=== PATIENT | female | born 1965 | race Caucasian/White ===

== ENCOUNTER 2017-06-11 17:56 | Emergency (ER) | payer MEDICARE ==
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
--- NOTE | 2017-06-11 19:17 | RADIOLOGY REPORT (SQ) ---
EXAM DESCRIPTION: FOOT RIGHT COMPLETE COMPLETED DATE/TIME: 06/11/2017 7:04 pm REASON FOR STUDY: Fell off ladder landing on right heel then knee COMPARISON: None. NUMBER OF VIEWS: Three views. TECHNIQUE: AP, lateral and oblique radiographic images acquired of the right foot. LIMITATIONS: None. FINDINGS: MINERALIZATION: Normal. BONES: No acute fracture or dislocation. Orthopedic screw noted at the navicular bone. SOFT TISSUES: No soft tissue swelling. No radiopaque foreign body. IMPRESSION: No radiographic evidence of acute injury. TECHNICAL DOCUMENTATION: JOB ID: [id number] 2010 [employer]- All Rights Reserved
--- NOTE | 2017-06-11 19:18 | RADIOLOGY REPORT (SQ) ---
EXAM DESCRIPTION: KNEE RIGHT 4 VIEWS COMPLETED DATE/TIME: 06/11/2017 7:04 pm REASON FOR STUDY: Fell off ladder landing on right heel then knee COMPARISON: None. NUMBER OF VIEWS: Four views. TECHNIQUE: AP, lateral, and both oblique radiographic images acquired of the right knee. LIMITATIONS: None. FINDINGS: MINERALIZATION: Normal. BONES: No acute fracture or dislocation. JOINT: No effusion. SOFT TISSUES: No soft tissue swelling. No radio-opaque foreign body. IMPRESSION: No radiographic evidence of acute injury. TECHNICAL DOCUMENTATION: JOB ID: [id number] OH-[id number] 2010 [employer]- All Rights Reserved
--- NOTE | 2017-06-11 19:20 | RADIOLOGY REPORT (SQ) ---
EXAM DESCRIPTION: OS CALCIS/HEEL RIGHT COMPLETED DATE/TIME: 06/11/2017 7:04 pm REASON FOR STUDY: Fell off ladder landing on right heel then knee COMPARISON: Right foot x-ray 06/11/2017. NUMBER OF VIEWS: Two views. TECHNIQUE: Plantar and lateral images acquired of the right calcaneous. LIMITATIONS: None. FINDINGS: MINERALIZATION: Normal. BONES: No acute fracture or dislocation. Orthopedic screw noted at the navicular bone. SOFT TISSUES: No soft tissue swelling. No radiopaque foreign body. IMPRESSION: No radiographic evidence of acute injury. TECHNICAL DOCUMENTATION: JOB ID: [id number] OH-[id number] 2010 [employer]- All Rights Reserved
--- NOTE | 2017-06-11 19:25 | RADIOLOGY REPORT (SQ) ---
EXAM DESCRIPTION: CT CERVICAL SPINE WITHOUT; CT THORACIC SPINE WITHOUT; CT LUMBAR SPINE WITHOUT COMPLETED DATE/TIME: 06/11/2017 7:06 pm REASON FOR STUDY: Neck pain after landing on heel; back pain after fall COMPARISON: None. TECHNIQUE: Axial images acquired through the cervical, thoracic and lumbar spine without intravenous contrast. Images reviewed with lung, soft tissue and bone windows. Reconstructed coronal and sagit harsh MPR images reviewed. Images stored on PACS. All CT scanners at this facility use dose modulation, iterative reconstruction, and/or weight based d osing when appropriate to reduce radiation dose to as low as reasonably achievable (ALARA). [facility]: Dose Right [facility]: CareDose [facility]: Dose Right [facility]: Teradose 4D [facility]: [employer] RADIATION DOSE: CT Rad equipment meets quality standard of care and radiation dose reduction techniq ues were employed. CTDIvol: 11.6 mGy. DLP: 212 mGy-cm.; CT Rad equipment meets quality standard of ca re and radiation dose reduction techniques were employed. CTDIvol: 100.9 mGy. DLP: 3234 mGy-cm. mGy. LIMITATIONS: None. FINDINGS: Cervical: Normal alignment. Intact anterior instrumentation spanning C5 through C7. No fracture or bone lesio n. Clear lung apices. Thoracic: Normal alignment. No fracture or bone lesion. No displaced rib fracture. No visualized mediastinal hematoma. Clear lungs. Lumbar: No posttraumatic malalignment. Minimal listhesis at operative level L4-5. This fusion with posterio r rods and screws generally intact spanning this level. Mild lucency along the inferior pedicle scre ws could reflect loosening. No fracture or bone lesion. Nonobstructive bilateral nephrolithiasis. No retroperitoneal hematoma or visualized pelvic fracture. IMPRESSION: 1. No evidence of cervical, thoracic or lumbar spine fracture. Other findings as above. TECHNICAL DOCUMENTATION: JOB ID: [id number] Quality ID # [id number]: Final reports with documentation of one or more dose reduction techniques (e.g., Au tomated exposure control, adjustment of the mA and/or kV according to patient size, use of iterative reconstruction technique) 2010 [employer]- All Rights Reserved
[2017-06-11 19:43] VITALS: BP 134/87
== END 2017-06-11 19:45 | disposition home or self-care (01) ==
LOC: ER 17:56
DX: M54.2 Cervicalgia (principal); M79.671 Pain in right foot; G89.29 Other chronic pain; M25.561 Pain in right knee; M54.5 Low back pain; W11.XXXA Fall on and from ladder, initial encounter; F17.210 Nicotine dependence, cigarettes, uncomplicated; Z98.1 Arthrodesis status
CPT/HCPCS: 72125; 72128; 72131; 99284; 99406

== ENCOUNTER 2017-08-30 12:23 | Emergency (ER) | payer MEDICARE, MEDICAID ==
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
--- NOTE | 2017-08-30 14:00 | RADIOLOGY REPORT (SQ) ---
EXAM DESCRIPTION: L SPINE WHOLE COMPLETED DATE/TIME: 08/30/2017 1:39 pm REASON FOR STUDY: low back pain COMPARISON: None. NUMBER OF VIEWS: Five views including obliques. TECHNIQUE: AP, lateral, oblique, and sacral radiographic images acquired of the lumbar spine. LIMITATIONS: None. FINDINGS: MINERALIZATION: Normal. SEGMENTATION: Normal. No transitional anatomy. ALIGNMENT: Normal. VERTEBRAE: Maintained height. No fracture or worrisome bone lesion. DISCS: There is decrease in the L4-L5 disc space height. No other significant disc space reduction i s seen POSTERIOR ELEMENTS: Pedicles and facets are intact. No pars defect or posterior arch defects. HARDWARE: Bilateral orthopedic rods transfixed by pedicular screws are identified at L4-L5 level. PARASPINAL SOFT TISSUES: Normal. PELVIS: Intact as visualized. No fractures or worrisome bone lesions. SI joints intact. OTHER: No other significant finding. IMPRESSION: Postsurgical changes as noted above. There is decrease in the L4-L5 disc space height. Other findings as noted above TECHNICAL DOCUMENTATION: JOB ID: [id number] [employer]- All Rights Reserved Reading location - IP/workstation name: [email or web address]
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
[2017-08-30 14:59] VITALS: BP 115/88
== END 2017-08-30 15:02 | disposition home or self-care (01) ==
LOC: ER 12:23
DX: S93.401A Sprain of unspecified ligament of right ankle, initial encounter (principal); M54.5 Low back pain; M54.9 Dorsalgia, unspecified; G89.29 Other chronic pain; Z79.899 Other long term (current) drug therapy; V89.0XXA Person injured in unspecified motor-vehicle accident, nontraffic, initial encounter; F17.200 Nicotine dependence, unspecified, uncomplicated
CPT/HCPCS: 99283; 73610; 72110; L4350